=== PATIENT | female | born 1980 | race Caucasian/White ===

== ENCOUNTER 2016-08-11 08:56 | Outpatient (RCR) | payer OTHER | END 2016-09-05 | LOC: M ST 08:56 | PROVIDERS: ATTEND Family Medicine | DX: Z51.89 Encounter for other specified aftercare (principal); R47.9 Unspecified speech disturbances ==

== ENCOUNTER → 2016-12-31 | Outpatient (CLI) | payer OTHER ==
--- NOTE | 2016-12-31 14:10 | REP ---
TRIPLE PHASE BONE SCAN OF THE LOWER LEGS: Following the intravenous administration of 21.7 millicuries technetium 99m MDP, the patient's lower legs are imaged in the flow phase in the anterior and posterior projections. There is increased blood flow to the region of the posterior right ankle. Immediate blood pool and 2-hour delayed images are performed of the lower legs in the anterior, posterior, and both lateral projections. There is increased blood pooling in the soft tissue posterior to the right ankle. The delayed images show focal increased uptake in the posterior margin of the right calcaneus. This could represent stress fracture or stress related changes in the posterior right calcaneus. Recommend correlation with plain films. Signed by Jonny Infante MD 12/31/2016 05:24 P
== END ==
LOC: M RAD 10:50
PROVIDERS: ATTEND Family Medicine
DX: R93.7 Abnormal findings on diagnostic imaging of other parts of musculoskeletal system (principal)
CPT/HCPCS: 78315; A9503

== ENCOUNTER 2017-01-31 15:47 | Outpatient (RCR) | payer OTHER | END 2017-02-05 | LOC: M PT 15:47 | PROVIDERS: ATTEND Family Medicine | DX: Z51.89 Encounter for other specified aftercare (principal); M79.661 Pain in right lower leg; M79.662 Pain in left lower leg ==

== ENCOUNTER 2017-03-03 15:15 | Outpatient (RCR) | payer OTHER | END 2017-03-08 | LOC: M PT 15:15 | PROVIDERS: ATTEND Family Medicine | DX: Z51.89 Encounter for other specified aftercare (principal); M79.661 Pain in right lower leg; M79.662 Pain in left lower leg ==

== ENCOUNTER 2017-04-04 12:52 | Outpatient (RCR) | payer OTHER | END 2017-04-07 | LOC: M ST 12:52 | PROVIDERS: ATTEND Family Medicine | DX: M79.661 Pain in right lower leg (principal); M79.662 Pain in left lower leg; H91.8X3 Other specified hearing loss, bilateral ==

== ENCOUNTER 2017-04-18 14:29 | Outpatient (RCR) | payer OTHER | END 2017-05-08 | LOC: M ST 14:29 | DX: Z51.89 Encounter for other specified aftercare (principal); M79.661 Pain in right lower leg; M79.662 Pain in left lower leg ==

== ENCOUNTER 2017-05-19 12:51 | Outpatient (RCR) | payer OTHER | END 2017-06-08 | LOC: M PT 12:51 | DX: Z51.89 Encounter for other specified aftercare (principal); M79.662 Pain in left lower leg; H91.8X3 Other specified hearing loss, bilateral ==

== ENCOUNTER → 2017-05-24 | Outpatient (CLI) | payer OTHER | LOC: M RAD 13:56 | DX: R09.81 Nasal congestion (principal); D16.4 Benign neoplasm of bones of skull and face; J34.89 Other specified disorders of nose and nasal sinuses | CPT/HCPCS: 70486 ==

== ENCOUNTER 2017-06-23 10:51 | Outpatient (RCR) | payer OTHER | END 2017-07-06 | LOC: M ST 10:51 | DX: Z51.89 Encounter for other specified aftercare (principal); M79.662 Pain in left lower leg; M79.661 Pain in right lower leg; H91.8X3 Other specified hearing loss, bilateral ==

== ENCOUNTER 2017-07-24 16:48 | Emergency (ER) | payer OTHER ==
[2017-07-24 17:46] LABS: INFLUENZA A AMPLIFICATION POSITIVE (NEGATIVE); INFLUENZA B AMPLIFICATION NEGATIVE (NEGATIVE); RSV AMPLIFICATION NEGATIVE (NEGATIVE)
[2017-07-24] MEDS: OSELTAMIVIR PHOSPHATE 75 MG CAP (TAMIFLU) PO (18:06)
== END 2017-07-24 18:20 | disposition home or self-care (01) ==
LOC: M ED 16:48
DX: J09.X2 Influenza due to identified novel influenza A virus with other respiratory manifestations (principal); Z79.899 Other long term (current) drug therapy
CPT/HCPCS: 87631

== ENCOUNTER 2017-08-04 13:00 | Outpatient (RCR) | payer OTHER | END 2017-08-06 | LOC: M ST 13:00 | DX: Z51.89 Encounter for other specified aftercare (principal); M79.661 Pain in right lower leg; M79.662 Pain in left lower leg ==

== ENCOUNTER 2017-11-17 10:28 | Outpatient (RCR) | payer OTHER | END 2017-12-06 | LOC: M ST 10:28 | DX: H90.3 Sensorineural hearing loss, bilateral (principal) | CPT/HCPCS: 92507 ==

== ENCOUNTER → 2017-12-06 | Outpatient (REF) | payer OTHER | LOC: M SFHCLERA 19:12 | DX: R30.0 Dysuria (principal) ==

== ENCOUNTER → 2018-01-26 | Outpatient (REF) | payer OTHER | LOC: M SFHCLERA 14:38 | DX: J02.9 Acute pharyngitis, unspecified (principal) ==

== ENCOUNTER → 2018-06-04 | Outpatient (REF) | payer OTHER ==
[~2018-06-04] MED LIST: OSEL75CA PO; PRED20TA PO; TESS100C PO
== END ==
LOC: M SFHCLERA 13:55
PROVIDERS: ATTEND Nurse Practitioner Family
DX: R53.81 Other malaise (principal)